=== PATIENT | male | born 1975 | race Two or more races ===

== ENCOUNTER 2018-10-01 15:17 | Inpatient (IN) | payer MEDICAID | END 2018-10-04 18:05 | disposition home or self-care (01) | LOC: TELE-WESTW 21:48 → ER 15:17 → TELE-WESTW 21:48 → TELE 20:24 → TELE-WESTW 21:53 | DX: I50.43 Acute on chronic combined systolic (congestive) and diastolic (congestive) heart failure (principal); E43 Unspecified severe protein-calorie malnutrition; I11.0 Hypertensive heart disease with heart failure; B18.2 Chronic viral hepatitis C; I48.91 Unspecified atrial fibrillation; E87.1 Hypo-osmolality and hyponatremia ==

== ENCOUNTER 2018-11-10 18:55 | Emergency (ER) | payer MEDICAID ==
[~2018-11-10] VITALS: Ht 172.7 cm; Wt 77.1 kg
[~2018-11-10 18:55] MED LIST: CARV6.25 PO; LISI2.5T47 PO; METO5TAB56 PO; POTA20TA53 PO; SIMV10TA84 PO; WARF3TAB20 PO
[2018-11-10 19:17] VITALS: BP 158/129
[2018-11-10 21:31] LABS: Basophils # (auto) 0.1 uL; Eosinophils # (auto) 0.1 uL; Hemoglobin 11.1 g/dL (13.5-17.5); Monocytes # (auto) 0.7 uL; Platelet Count (auto) 208 10^3/uL (140-450); Red Cell Distribution Width 18.7 % (11.8-14.3)
[2018-11-10 21:33] LABS: Basophils % (auto) 1.6 % (0.0-2.0); Eosinophils % (auto) 1.1 % (0.0-7.0); Lymphocytes # (auto) 1.6 uL; Mean Corpuscular Hemoglobin 26.9 pg (28.0-32.0); Mean Corpuscular Hgb Conc. 31.8 g/dL (32.0-36.0); Mean Corpuscular Volume 84.7 fL (80.0-100.0); Monocytes % (auto) 8.6 % (0.0-12.0); Neutrophils # (auto) 5.4 uL; Neutrophils % (auto) 68.7 % (37.0-80.0); Nucleated Red Blood Cells % 0.2 %; Red Blood Cells 4.13 10^6/uL (4.5-5.90); White Blood Cell 7.8 10^3/uL (4.4-10.8)
[2018-11-10 21:44] LABS: Albumin 3.1 g/dL (3.4-5.0); BUN/Creatinine Ratio 26.2; Calcium 7.9 mg/dL (8.5-10.1); Potassium 3.8 mmol/L (3.5-5.1)
[2018-11-10 21:47] LABS: Bilirubin, Total 0.8 mg/dL (0.2-1.0); Total Protein 7.5 g/dL (6.4-8.2)
== END 2018-11-11 00:50 | disposition left against medical advice (07) ==
LOC: ER 18:55
DX: R10.9 Unspecified abdominal pain (principal); R19.7 Diarrhea, unspecified; R06.02 Shortness of breath; Z53.21 Procedure and treatment not carried out due to patient leaving prior to being seen by health care provider
CPT/HCPCS: 36415; 80053; 85025

== ENCOUNTER 2018-12-11 00:02 | Inpatient (IN) | payer MEDICAID | END 2018-12-13 20:55 | disposition home or self-care (01) | LOC: ER 00:02 → TELE 06:19 → TELE-EAST 17:55 | DX: I50.23 Acute on chronic systolic (congestive) heart failure (principal); N17.0 Acute kidney failure with tubular necrosis; R18.8 Other ascites; I48.2 Chronic atrial fibrillation; E87.6 Hypokalemia; I11.0 Hypertensive heart disease with heart failure; Z79.01 Long term (current) use of anticoagulants; I50.82 Biventricular heart failure ==